=== PATIENT | male | born 1990 | race Two or more races ===

== ENCOUNTER 2025-04-03 16:15 | Emergency (ER) | payer OTHER ==
[~2025-04-03] VITALS: Ht 172.7 cm; Wt 70.3 kg
[2025-04-03] MEDS ORDERED: ORPHENADRINE CITRATE 30 MG/ML AMPUL IM ONE (17:15)
[2025-04-03] MEDS ORDERED: KETOROLAC TROMETHAMINE 60 MG VIAL IM ONE ×2 (17:15→18:05)
[2025-04-03] MEDS ORDERED: DEXAMETHASONE SODIUM PHOSPHATE 4 MG/ML VIAL IM ONE (17:15)
[2025-04-03] MEDS ORDERED: ORPHENADRINE CITRATE 30 MG/ML AMPUL ONE (18:04)
[2025-04-03] MEDS ORDERED: DEXAMETHASONE SODIUM PHOSPHATE 4 MG/ML VIAL ONE (18:05)
[2025-04-03] MEDS ORDERED: NABUMETONE750 MG PO (18:14)
[2025-04-03] MEDS ORDERED: BACLOFEN5 MG PO (18:14)
== END 2025-04-03 18:27 | disposition home or self-care (01) ==
LOC: ER 16:16
DX: M54.2 Cervicalgia (principal); M62.838 Other muscle spasm